=== PATIENT | male | born 1985 | race Caucasian/White ===

== ENCOUNTER 2016-08-12 10:32 | Day surgery (SDC) | payer OTHER ==
[~2016-08-12] VITALS: Ht 172.7 cm; Wt 81.3 kg
[2016-08-12 11:13] VITALS: BP 135/87; PULSE 79; RESP 16; Ht 172.7 cm; Wt 81.3 kg
--- NOTE | 2016-08-12 12:18 | HPN ---
Date/Time of Note Date/Time of Note DATE: 08/12/16 TIME: 12:18 Interval H&P Admission Note Pt. seen H&P reviewed: No system changes TEE SCANLON DPM Aug 12, 2016 12:18
[2016-08-12] MEDS ORDERED: BUPIVACAINE 0.5% (SDV) 30 ML INJ ONE (12:21)
[2016-08-12] MEDS ORDERED: LIDOCAINE 1% (STERILE-PAK) 30 ML INJ ONE (12:21)
[2016-08-12] MEDS ORDERED: MIDAZOLAM 1 MG/ML 2 ML INJ ONE ×2 (12:30→12:42)
[2016-08-12] MEDS ORDERED: FENTAnyl 50 MCG/ML VIAL ONE ×2 (12:30→12:42)
[2016-08-12] MEDS ORDERED: CEFAZOLIN 1 GM INJ ONE (12:30)
[2016-08-12] MEDS ORDERED: POVIDONE IODINE 10% 28.4 GM OINT ONE (12:49)
[2016-08-12] MEDS ORDERED: KETOROLAC 30 MG INJ ONE (12:51)
[2016-08-12] MEDS ORDERED: DEXAMETHASONE 4 MG/ML 1 ML INJ ONE (12:51)
[2016-08-12] MEDS ORDERED: ONDANSETRON 4 MG INJ ONE (12:51)
[2016-08-12] MEDS ORDERED: OXYCODONE/ACETAMINOPHEN (5/325) TAB PO PRN ×2 (13:00)
[2016-08-12] MEDS ORDERED: morphine (1 MG/ML) 10ML SYRINGE IV PRN ×3 (13:00)
[2016-08-12] MEDS ORDERED: HYDROmorphONE (0.2 MG/ML) 10ML SYG IV PRN ×3 (13:00)
[2016-08-12] MEDS ORDERED: MEPERIDINE 25 MG INJ IV PRN (13:00)
[2016-08-12] MEDS ORDERED: DIPHENHYDRAMINE 50 MG INJ IV PRN (13:00)
[2016-08-12] MEDS ORDERED: ONDANSETRON 4 MG INJ IV PRN (13:00)
[2016-08-12] MEDS ORDERED: METOCLOPRAMIDE 10 MG INJ ONE (13:01)
[2016-08-12 13:29] VITALS: BP 125/70; RESP 16
[2016-08-12 13:33] VITALS: BP 115/72; PULSE 80; RESP 18
[2016-08-12 13:38] VITALS: BP 121/64; PULSE 76; RESP 15
--- NOTE | 2016-08-12 14:01 | PREOPHP ---
DATE OF ADMISSION: 08/12/2016 HISTORY OF PRESENT ILLNESS: The patient is being admitted to the hospital for elective foot surgery , palliative treatment unsuccessful. Patient has been explained surgery, complications, alternative s and elected to have elective foot surgery. The patient is talking about the pain on the lateral a spect of the hallux nail bilateral. ALLERGIES: PATIENT STATES TO PEDIAZOLE. MEDICATIONS: Nothing at present time. REVIEW OF SYSTEMS: Negative for heart, lung, liver, kidney, thyroid. Diabetes negative. SOCIAL HISTORY: Smoke: 1 cigarette per day. Alcohol: Occasionally. See any other pertinent history in upper extremity physical exam by [facility] PHYSICAL EXAMINATION: LOWER EXTREMITY: Shows a DP and PT equal and regular. NEUROLOGICAL: Negative for pathology. DERMATOLOGICAL: Shows an onychia lateral aspect hallux bilateral with ingrowing nail hallux bilater al. IMAGING: X-rays, musculoskeletal negative. FINAL DIAGNOSIS: An ingrowing with onychia lateral aspect hallux bilateral. Dictated By: TEE ALCOCER/CORBY Conf#: [id number] DID#: [id number]
[2016-08-12 14:10] VITALS: BP 123/75; PULSE 72
--- NOTE | 2016-08-12 14:20 | OPR ---
DATE OF OPERATION: 08/12/2016 PREOPERATIVE DIAGNOSIS: Ingrowing with paronychia lateral aspect hallux, bilateral. POSTOPERATIVE DIAGNOSIS: Ingrowing with paronychia lateral aspect hallux, bilateral. PROCEDURE PERFORMED: Partial matrixectomy with plastic lip repair lateral aspect hallux, bilateral. SURGEON: Tee Levin DPM DESCRIPTION OF PROCEDURE: The patient was brought to the surgical suite, placed in the supine posit ion. The patient had IV sedation and local anesthetic of 1% Xylocaine plain. The patient had a elsie rile prep and drape and findings consistent with the pre and postop diagnosis. The Tourni-Cot was p laced at the base of the hallux. The lateral 8th of the hallux nail was excised in toto and then al tequila that border, a longitudinal incision was made going 1 cm proximal to the eponychium and 0.5 cm d istal to the nail groove. Sharp and blunt dissection, the incision was carried deep. A semi-ellipt ical incision was then made laterally connecting the 2 ends of the longitudinal incision and all par onychia, granular tissue and matrix was resected. The area was cleansed, rasped smooth, cleansed an d the area was then coapted using 5-0 nylon. The toes were injected with 0.5% Marcaine to prolong a nesthesia and a dressing of 1/2-inch Steri-Strips, Betadine ointment, 4 x 4's impregnated with Betad ine solution and Oneal with an outer layer of Coban made into a semi-compressive dressing. The preo perative condition having been relieved and the toe had good circulation. Toes, both right and left , were done the exact same way. There were no complications. The patient was returned to the [facility] room in satisfactory condition. Dictated By: TEE ALCOCER/CORBY Conf#: [id number] DID#: [id number]
== END 2016-08-12 15:05 | disposition home or self-care (01) ==
LOC: SDS 10:32
PROVIDERS: ATTEND Podiatrist
DX: L60.0 Ingrowing nail (principal); L03.032 Cellulitis of left toe; L03.031 Cellulitis of right toe; Z87.891 Personal history of nicotine dependence
CPT/HCPCS: 11750; 88304; J0690; J1100; J1885; J2250; J2405; J2765; J3010; Z7512; Z7610